=== PATIENT | female | born 1945 | race Caucasian/White ===

== ENCOUNTER 2025-02-16 14:47 | Emergency (ER) | payer MEDICARE, OTHER ==
[~2025-02-16] VITALS: Ht 162.6 cm; Wt 72.3 kg
[2025-02-16 14:52] VITALS: BP 177/94; PULSE 87; RESP 16; TEMP 97.5; O2SAT 99
[2025-02-16] MEDS ORDERED: DOXY-462 PO (15:57)
--- NOTE | 2025-02-16 15:59 | Physician Documentation ---
History of Present Illness ~ Chief Complaint: Wound Stated Complaint: WOUND Time Seen by MD: 15:21 Source: patient Mode of Arrival: POV Exam Limitations: no limitations HPI 80-year-old female who is here with a wound on her forehead which has apparently been there since she had sutures removed on her forehead following a ground level fall. She states when the sutures were removed everything looked fine but shortly after this she developed a wound the will not heal. She reports it will bleed and then it forms a bloody crust and then the cross will follow up and it will bleed again in another bloody crushable forearm. She denies any pain. When her friend came over to see her today and saw her forehead her friend thought that it was necessary to bring her to the ER given the look of the wound. No pre arrival treatment. Tetanus within 5 years?: Yes Medication Reconciliation Allergies: Coded Allergies: No Known Allergies (Unverified , 02/16/25) Past Medical History Past Medical History: No Pertinent History Review of Systems All Other Systems at this time: Reviewed and Negative Physical Exam Vital Signs: Temperature: 97.5, Source: Temporal, Heart Rate: 87, Respiratory Rate: 16, BP: 177/94, Pulse Oximetry: 99, Weight: 72.270 Oxygen Flow Rate: 0 Physical Exam General Appearance: Alert, WD/WN. NAD. HEENT: NCAT, PERRL, EOMI. Neck: Supple, trachea midline. Cardiovascular: RRR. No m/r/g. Lungs: CTAB. Breathing unlabored Extremities: Normal inspection. No edema. Skin: Warm/dry, normal color. Forehead there is a wound that is covered with a bloody crust with aj crusting as well and areas where there is some purulent drainage, no surrounding erythema, no edema or fluctuance. Neurological: Alert and oriented x4, normal gait. Psychiatric: Affect congruent with mood. Progress Results/Orders Results/Orders Orders - JANICE PERES Cult (Aer) Routine C&S+Gram St (02/16/25 15:49) Vital Signs 02/16/25 14:52 Temp 97.5 Pulse 87 Resp 16 B/P (MAP) 177/94 Pulse Ox 99 O2 Flow Rate 0 Medical Decision Making Differential Dx:Considerations: Include: Abscess, Cellulitis, Dressing change, Healing wound, Other Additional Comment This wound is concerning for possible retained foreign body from her fall or retained suture that is causing the wound did not heal. Also in the differential is skin cancer. Departure Time of Disposition: 15:54 Disposition: 01 HOME / SELF CARE / HOMELESS Impression: Primary Impression: Wound infection Condition: Stable Discharge Instructions: Wound Infection, Sino-ow-Avis Additional Instructions: CONTACT [facility] TO GET APPOINTMENT START ANTIBIOTICS TAKE ANTIBIOTIC WITH FOOD TO DECREASED RISK OF VOMITING OR GETTING NAUSEATED FROM THE ANTIBIOTIC Referrals: NO PRIMARY CARE PROVIDER (PCP) Prescriptions Doxycycline Monohydrate (Doxycycline Monohydrate) 100 Mg Capsule 1 CAP PO Q12H for 10 Days, #20 CAP Prov: JNAICE PERES 02/16/25 Education Educated: Patient Educated regarding: diagnosis, treatment, need for follow up Signature Scribe Signature: Cristela Attestation: JANICE BURGOS Feb 16, 2025 15:58
== END 2025-02-16 19:36 | disposition home or self-care (01) ==
LOC: ER 14:48
DX: S00.80XA Unspecified superficial injury of other part of head, initial encounter (principal); W18.30XA Fall on same level, unspecified, initial encounter; Y93.89 Activity, other specified; Y92.89 Other specified places as the place of occurrence of the external cause; Y99.8 Other external cause status
CPT/HCPCS: 87070; 87077; 87186; 99284